=== PATIENT | female | born 1960 | race Caucasian/White ===

== ENCOUNTER → 2019-05-27 | Outpatient (CLI) | payer OTHER ==
--- NOTE | 2019-05-27 19:55 | ECHO ---
DATE OF PROCEDURE: 05/27/2019 REFERRING PROVIDER: Navid Waters NP INDICATION: Congestive heart failure. Height 162 cm, weight 149 kg. DIMENSIONS: IVS: 1.0 LV: 5.2 LVPW: 0.8 LA: 3.4 Aorta: 3.4 IVC: 1.3 Mitral E wave velocity: 89 A wave: 58 E prime septal: 12.3 E prime lateral: 11.7 FINDINGS: The study is of difficult technical quality corresponding to patient's body habitus. Left ventricle is of normal size and normal contractility. Computer calculated LVEF was 63% which appears about correct. The right ventricle is not enlarged. Both atria appear grossly normal. Aortic, mitral and tricuspid valves appear normal. Pulmonic valve was not well seen. No pericardial effusion is noted. Inferior vena cava is of normal size. Aortic root, aortic arch and visualized segment of abdominal aorta appear normal. Doppler interrogation reveals no aortic stenosis or insufficiency. There is trace mitral insufficiency. Tricuspid valve is functionally competent. Mitral inflow pattern and tissue Doppler imaging of mitral annulus revealed normal diastolic function. CONCLUSIONS: 1. Study is of fair technical quality. 2. Normal left ventricular (LV) size with normal LV systolic and diastolic function. 3. No significant valvular disease. 4. Unable to estimate pulmonary artery pressure but likely normal central venous pressure. 5. The study is not supportive of diagnosis of congestive heart failure even though it cannot rule it out. Subacute bacterial endocarditis (SBE) prophylaxis is not recommended.
== END ==
LOC: M CARPUL 09:02
PROVIDERS: ATTEND Registered Nurse
DX: I50.9 Heart failure, unspecified (principal)